=== PATIENT | female | born 1940 | race Caucasian/White ===

== ENCOUNTER 2023-03-29 05:34 | Inpatient (IN) | payer MEDICARE ==
[2023-03-26 12:26] VITALS: BMI 29.2
[2023-03-29] MEDS ORDERED: Thrombin 5000 UNITS/5 ML VIAL ONE (06:12)
[2023-03-29] MEDS ORDERED: Vancomycin 1 GM VIAL ONE (06:12)
[2023-03-29] MEDS ORDERED: EPINEPHrine 1 MG/ML AMP ONE (06:12)
[2023-03-29] MEDS ORDERED: Bupivacaine PF 0.5% 30 ML VIAL ONE (06:12)
[2023-03-29 06:39] LABS: #Eosinphils 0.1 thou/uL (0.0-0.7); #Monocytes 0.8 thou/uL (0.11-0.59); %Basophils 0.4 % (0.0-1.0); %Eosinophils 1.8 % (0.0-10.0); %Lymphocytes 17.1 % (21.0-51.0); %Monocytes 11.5 % (0.0-10.0); %Neutrophils 68.9 % (42.0-75.0); Hematocrit 35.4 % (36.0-47.0); Hemoglobin 11.2 g/dL (12.0-16.0); Mean Corpuscular HGB CONC 31.6 g/dL (32.0-36.0); Mean Corpuscular Hemoglobin 30.9 pg (27.0-31.0); Mean Corpuscular Volume 97.5 fl (78.0-98.0); Mean Platelet Volume 9.6 fL (7.4-10.4); Platelet Count 224 10x3/uL (130-400); Red Blood Cell (RBC) Count 3.63 mill/uL (4.20-5.40); White Blood Cell (WBC) Count 7.2 10x3/uL (4.8-10.8)
[2023-03-29] MEDS ORDERED: LevoFLOXacin 500 mg/D5W 100 ML BAG ONE (06:39)
[2023-03-29] MEDS ORDERED: Clindamycin/D5W 900 mg/50 ml Premix Bag ONE (06:39)
[2023-03-29] MEDS ORDERED: Bisacodyl 10 MG SUPP PR PRN (06:48)
[2023-03-29] MEDS ORDERED: Milk Of Magnesia 30 ML UDCUP PO PRN (06:48)
[2023-03-29] MEDS ORDERED: Prochlorperazine 10 MG/2 ML VIAL IM PRN (06:48)
[2023-03-29] MEDS ORDERED: Mag-Al 1200 mg/1200 mg/30 ML UDCUP PO PRN (06:48)
[2023-03-29 06:53] LABS: PTT 38.9 sec (22.9-36.1); Prothrombin Time 13.1 sec (12.0-14.7)
[2023-03-29] MEDS ORDERED: SUGAMMADEX SODIUM 200 MG/2 ML VIAL ONE (06:55)
[2023-03-29] MEDS ORDERED: Fentanyl 250 MCG/5 ML VIAL ONE (06:55)
[2023-03-29] MEDS ORDERED: Albumin 5% 500 ML ONE (06:56)
[2023-03-29 07:00] LABS: Anion Gap 13 mmol/L (10-20); BUN (Urea Nitrogen) 19 mg/dL (9.8-20.1); Calc. Creatinine Clearance 66 mL/min (70-130); Calcium 9.6 mg/dL (7.8-10.44); Carbon Dioxide 28 mmol/L (23-31); Chloride 106 mmol/L (98-107); Estimated GFR 86; Glucose 97 mg/dL (83-110); Potassium 4.2 mmol/L (3.5-5.1); Sodium 143 mmol/L (136-145)
[2023-03-29] MEDS ORDERED: NEOSTIGMINE 3 MG/3 ML SYR 3 MG/3 ML SYRINGE ONE (07:20)
[2023-03-29] MEDS ORDERED: Dexamethasone 20 MG/5 ML VIAL ONE (07:20)
[2023-03-29] MEDS ORDERED: Ondansetron PF 4 MG/2 ML Vial ONE ×2 (07:20→10:10)
[2023-03-29] MEDS ORDERED: Glycopyrrolate 0.2 MG/ML 5 ML SYRINGE ONE (07:20)
[2023-03-29] MEDS ORDERED: Rocuronium Bromide 10 MG/ML (10ML VIAL) ONE (07:20)
[2023-03-29] MEDS ORDERED: PROPOFOL 200 MG/20 ML VIAL ONE (07:20)
[2023-03-29] MEDS ORDERED: Vecuronium 10 MG VIAL ONE (07:20)
[2023-03-29] MEDS ORDERED: Lidocaine 1% PF 5 ML VIAL ONE (07:20)
[2023-03-29] MEDS ORDERED: diphenhydrAMINE 50 MG/ML VIAL ONE (07:20)
[2023-03-29] MEDS ORDERED: Phenylephrine 10 MG/ML VIAL ONE (07:49)
[2023-03-29] MEDS ORDERED: HYDROmorphone 2 MG/ML VIAL ONE (10:18)
[2023-03-29] MEDS ORDERED: Ondansetron HCl/PF 4 MG/2 ML Vial IVP PRN (10:55)
[2023-03-29] MEDS ORDERED: HYDROmorphone 2 MG/ML VIAL SLOW IVP PRN (10:55)
[2023-03-29] MEDS ORDERED: Promethazine HCl 25 MG/ML VIAL IM PRN (10:55)
[2023-03-29] MEDS ORDERED: HYDROmorphone 0.5 MG/0.5 ML SYRINGE ONE ×4 (11:05→11:43)
[2023-03-29] MEDS ORDERED: fentaNYL 50 mcg/mL 1 mL Vial ONE ×4 (11:56→13:27)
[2023-03-29] MEDS: Docusate 100 MG CAP PO SCH ×2 (14:47→20:34)
[2023-03-29] MEDS: Ondansetron PF 4 MG/2 ML Vial IVP PRN (15:24)
[2023-03-29] MEDS: HYDROcodone/Acetaminophen 10/325 mg Tablet PO PRN ×2 (16:26→22:00)
[2023-03-29] MEDS: tiZANidine HCl 4 MG TAB PO PRN (18:06)
[2023-03-29] MEDS: Clindamycin/D5W 900 MG in Premix Bag 1 BAG IVPB SCH (18:50)
[2023-03-29] MEDS ORDERED: Diazepam 5 MG TAB PO SCH (20:00)
[2023-03-29] MEDS ORDERED: Dexamethasone 4 mg/ml Vial SLOW IVP SCH (20:00)
[2023-03-29] MEDS: Cyanocobalamin (Vitamin B-12) 1,000 MCG TAB PO SCH (20:33)
[2023-03-29] MEDS: hydrALAZINE 25 MG TAB PO SCH (20:34)
[2023-03-29] MEDS: Losartan 25 MG TAB PO SCH (20:34)
[2023-03-29] MEDS: Multivit, Therapeutic 1 TAB PO SCH (20:34)
[2023-03-29] MEDS: carBAMazepine 200 MG TAB PO SCH (20:34)
[2023-03-30] MEDS: diphenhydrAMINE 50 MG/ML VIAL IVP PRN (00:07)
[2023-03-30] MEDS: Clindamycin/D5W 900 MG in Premix Bag 1 BAG IVPB SCH (00:07)
[2023-03-30] MEDS: tiZANidine HCl 4 MG TAB PO PRN ×3 (02:01→17:59)
[2023-03-30] MEDS: HYDROcodone/Acetaminophen 10/325 mg Tablet PO PRN ×6 (02:02→22:50)
[2023-03-30] MEDS: Levothyroxine 150 MCG TAB PO SCH (05:26)
[2023-03-30 05:56] LABS: #Monocytes 0.8 thou/uL (0.11-0.59); #Neutrophils 6.2 thou/uL (1.40-6.50); %Basophils 0.1 % (0.0-1.0); %Lymphocytes 11.3 % (21.0-51.0); %Monocytes 9.5 % (0.0-10.0); %Neutrophils 78.6 % (42.0-75.0); Hematocrit 26.7 % (36.0-47.0); Hemoglobin 8.4 g/dL (12.0-16.0); Mean Corpuscular HGB CONC 31.5 g/dL (32.0-36.0); Mean Corpuscular Volume 95.4 fl (78.0-98.0); Mean Platelet Volume 10.3 fL (7.4-10.4); Platelet Count 172 10x3/uL (130-400); White Blood Cell (WBC) Count 7.9 10x3/uL (4.8-10.8)
[2023-03-30 06:35] LABS: Anion Gap 15 mmol/L (10-20); BUN (Urea Nitrogen) 14 mg/dL (9.8-20.1); Calc. Creatinine Clearance 69 mL/min (70-130); Carbon Dioxide 25 mmol/L (23-31); Chloride 104 mmol/L (98-107); Estimated GFR 87; Glucose 120 mg/dL (83-110); Potassium 4.4 mmol/L (3.5-5.1); Sodium 140 mmol/L (136-145)
[2023-03-30 06:36] LABS: Calcium 9.1 mg/dL (7.6-10.4); Magnesium 1.6 mg/dL (1.6-2.6)
[2023-03-30] MEDS: Docusate 100 MG CAP PO SCH ×2 (08:59→21:13)
[2023-03-30] MEDS: carBAMazepine 200 MG TAB PO SCH ×2 (08:59→21:13)
[2023-03-30] MEDS: Atenolol 25 MG TAB PO SCH (08:59)
[2023-03-30] MEDS: Losartan 25 MG TAB PO SCH ×2 (09:00→21:12)
[2023-03-30] MEDS: hydrALAZINE 25 MG TAB PO SCH ×3 (09:00→21:12)
[2023-03-30] MEDS: Acetaminophen 325 MG TAB PO PRN (12:51)
[2023-03-30] MEDS ORDERED: Zolpidem Tartrate 5 MG TAB PO SCH (21:00)
[2023-03-30] MEDS: Multivit, Therapeutic 1 TAB PO SCH (21:13)
[2023-03-30] MEDS: Cyanocobalamin (Vitamin B-12) 1,000 MCG TAB PO SCH (21:14)
[2023-03-30] MEDS: HYDROcodone/Acetaminophen 7.5/325 mg Tablet PO PRN (21:15)
[2023-03-30] MEDS: Ondansetron PF 4 MG/2 ML Vial IVP PRN (22:50)
[2023-03-31] MEDS: diphenhydrAMINE 50 MG/ML VIAL IVP PRN (00:08)
[2023-03-31] MEDS: HYDROcodone/Acetaminophen 7.5/325 mg Tablet PO PRN (04:56)
[2023-03-31] MEDS: tiZANidine HCl 4 MG TAB PO PRN ×2 (04:57→12:05)
[2023-03-31] MEDS: HYDROcodone/Acetaminophen 10/325 mg Tablet PO PRN ×3 (04:57→16:07)
[2023-03-31] MEDS: Levothyroxine 150 MCG TAB PO SCH (04:58)
[2023-03-31] MEDS ORDERED: fentaNYL 50 mcg/mL 1 mL Vial SLOW IVP PRN (05:36)
[2023-03-31 07:35] LABS: #Eosinphils 0.1 thou/uL (0.0-0.7); #Monocytes 1.2 thou/uL (0.11-0.59); #Neutrophils 6.3 thou/uL (1.40-6.50); %Basophils 0.4 % (0.0-1.0); %Eosinophils 0.7 % (0.0-10.0); %Lymphocytes 11.1 % (21.0-51.0); %Monocytes 13.7 % (0.0-10.0); %Neutrophils 73.9 % (42.0-75.0); Hematocrit 25.8 % (36.0-47.0); Hemoglobin 8.4 g/dL (12.0-16.0); Mean Corpuscular HGB CONC 32.6 g/dL (32.0-36.0); Mean Corpuscular Hemoglobin 30.8 pg (27.0-31.0); Mean Corpuscular Volume 94.5 fl (78.0-98.0); Mean Platelet Volume 10.2 fL (7.4-10.4); Platelet Count 157 10x3/uL (130-400); RBC Distribution Width 13.1 % (11.5-14.5); Red Blood Cell (RBC) Count 2.73 mill/uL (4.20-5.40); White Blood Cell (WBC) Count 8.5 10x3/uL (4.8-10.8)
[2023-03-31] MEDS: Ondansetron PF 4 MG/2 ML Vial IVP PRN (09:49)
[2023-03-31] MEDS: carBAMazepine 200 MG TAB PO SCH (09:50)
[2023-03-31] MEDS: Atenolol 25 MG TAB PO SCH (09:51)
[2023-03-31] MEDS: hydrALAZINE 25 MG TAB PO SCH ×2 (09:51→16:08)
[2023-03-31] MEDS: Docusate 100 MG CAP PO SCH (09:51)
[2023-03-31 15:34] VITALS: BP 136/67; TEMP 99.1
[2023-03-31] MEDS: Acetaminophen 325 MG TAB PO PRN (17:08)
[2023-04-01] MEDS ORDERED: FLU VACC QS2023(65UP)/MF59C/PF 60 MCG/0.5 ML SYRINGE IM ONE (09:00)
== END 2023-03-31 19:51 | DRG 517 ==
LOC: SDC 05:34 → SURG B 06:53 → EDSTATUS 09:30 → OBSVTOIN 03-31 10:49
PROVIDERS: ADMIT Neurological Surgery; ATTEND Neurological Surgery
PROC: 01NB0ZZ Release Lumbar Nerve, Open Approach (ICD-10-PCS; principal; 2023-03-29)
PROC: 3E033XZ Introduction of Vasopressor into Peripheral Vein, Percutaneous Approach (ICD-10-PCS; 2023-03-29)
PROC: 30233J1 Transfusion of Nonautologous Serum Albumin into Peripheral Vein, Percutaneous Approach (ICD-10-PCS; 2023-03-29)
DX: M48.062 Spinal stenosis, lumbar region with neurogenic claudication (principal); G40.909 Epilepsy, unspecified, not intractable, without status epilepticus; J45.909 Unspecified asthma, uncomplicated; E78.00 Pure hypercholesterolemia, unspecified; I12.9 Hypertensive chronic kidney disease with stage 1 through stage 4 chronic kidney disease, or unspecified chronic kidney disease; N18.2 Chronic kidney disease, stage 2 (mild); D53.1 Other megaloblastic anemias, not elsewhere classified; K59.00 Constipation, unspecified; R10.9 Unspecified abdominal pain; Z86.73 Personal history of transient ischemic attack (TIA), and cerebral infarction without residual deficits; Z82.49 Family history of ischemic heart disease and other diseases of the circulatory system; Z98.890 Other specified postprocedural states; Z79.899 Other long term (current) drug therapy; Z88.0 Allergy status to penicillin; Z88.8 Allergy status to other drugs, medicaments and biological substances
CPT/HCPCS: 36415; 74018; 80048; 83735; 85025; 85610; 85730; 93005; 93010; A4314; J0171; J1100; J1170; J1200; J1956; J2370; J2405; J2704; J3010; J3370; J3490; P9045; S0020